=== PATIENT | female | born 1975 | race African-American/Black ===

== ENCOUNTER 2017-10-06 11:23 | Emergency (ER) | payer SELFPAY ==
[2017-10-06 12:00] LABS: #Basophils 0.1 thou/uL (0.0-0.2); #Eosinphils 0.2 thou/uL (0.0-0.7); #Lymphocytes 2.7 thou/uL (1.20-3.40); #Monocytes 0.5 thou/uL (0.11-0.59); #Neutrophils 4.8 thou/uL (1.40-6.50); %Basophils 0.9 % (0.0-1.0); %Eosinophils 2.2 % (0.0-10.0); %Lymphocytes 32.5 % (21.0-51.0); %Monocytes 6.2 % (0.0-10.0); %Neutrophils 58.1 % (42.0-75.0); Hemoglobin 14.1 g/dL (12.0-16.0); Mean Corpuscular Hemoglobin 28.8 pg (27.0-31.0); Mean Corpuscular Volume 87.4 fl (81.0-99.0); Mean Platelet Volume 6.9 fL (7.4-10.4); Platelet Count 265 thou/uL (130-400); RBC Distribution Width 11.8 % (11.5-14.5); Red Blood Cell (RBC) Count 4.89 mill/uL (4.20-5.40); White Blood Cell (WBC) Count 8.2 thou/uL (4.8-10.8)
--- NOTE | 2017-10-06 12:14 | RAD ---
AP VIEW OF THE CHEST: INDICATION: Emergency examination for hypertension. COMPARISON: Prior exam dated 10/14/10. FINDINGS: Lungs are clear. Cardiomediastinal silhouette is within normal limits. No acute osseous abnormality is evident. The examination is not appreciably changed from a comparison dated 10/14/10. IMPRESSION: No acute cardiopulmonary abnormality. POS: [facility]
[2017-10-06 12:24] LABS: CKMB 1.1 ng/mL (0-6.6); Troponin I Less than 0.010 ng/mL (< 0.028)
[2017-10-06 12:52] LABS: ALT (SGPT) 11 U/L (8-55); AST (SGOT) 17 U/L (5-34); Albumin 3.9 g/dL (3.5-5.0); Alkaline Phosphatase 79 U/L (40-150); Anion Gap 10 mmol/L (10-20); BUN (Urea Nitrogen) 11 mg/dL (7.0-18.7); Bilirubin, Total 0.4 mg/dL (0.2-1.2); CK (CPK) 284 U/L (29-168); Calc. Creatinine Clearance 0 mL/min (70-130); Calcium 8.8 mg/dL (7.8-10.44); Carbon Dioxide 26 mmol/L (22-29); Chloride 103 mmol/L (98-107); Estimated GFR-MDRD Greater than 90; Globulin 2.9 g/dL (2.4-3.5); Glucose 76 mg/dL (70-105); Potassium 3.8 mmol/L (3.5-5.1); Protein, Total 6.8 g/dL (6.0-8.3); Sodium 135 mmol/L (136-145)
[2017-10-06 14:17] LABS: Troponin I Less than 0.010 ng/mL (< 0.028)
== END 2017-10-06 14:34 | disposition home or self-care (01) ==
LOC: ERS 11:23
DX: R55 Syncope and collapse (principal); I10 Essential (primary) hypertension; D50.9 Iron deficiency anemia, unspecified; F17.210 Nicotine dependence, cigarettes, uncomplicated
CPT/HCPCS: 36415; 71045; 80053; 82553; 84484; 85025; 93005

== ENCOUNTER 2018-06-21 18:54 | Emergency (ER) | payer SELFPAY ==
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
== END 2018-06-21 22:51 | disposition home or self-care (01) ==
LOC: ERS 18:54
DX: S16.1XXA Strain of muscle, fascia and tendon at neck level, initial encounter (principal); M54.6 Pain in thoracic spine; I10 Essential (primary) hypertension; D50.0 Iron deficiency anemia secondary to blood loss (chronic); F17.210 Nicotine dependence, cigarettes, uncomplicated; Z79.899 Other long term (current) drug therapy; V43.92XA Unspecified car occupant injured in collision with other type car in traffic accident, initial encounter
CPT/HCPCS: 72040; 72072; 72125

== ENCOUNTER 2019-06-28 08:42 | Observation (INO) | payer MEDICAID, SELFPAY ==
--- NOTE | 2019-06-28 09:19 | RAD ---
CHEST 1 VIEW PORTABLE: Date: 06/28/2019 HISTORY: Shortness of breath, chest pain. COMPARISON: 10/06/2017. FINDINGS: Heart size is within normal limits. The lungs are clear. No confluent pneumonia, overt edema, or pleu ral effusion. IMPRESSION: No acute intrathoracic disease. POS: [facility]
[2019-06-28 09:33] LABS: #Eosinphils 0.2 thou/uL (0.0-0.7); #Lymphocytes 2.1 thou/uL (1.20-3.40); #Monocytes 0.4 thou/uL (0.11-0.59); #Neutrophils 3.6 thou/uL (1.40-6.50); %Basophils 0.5 % (0.0-1.0); %Eosinophils 2.8 % (0.0-10.0); %Lymphocytes 33.4 % (21.0-51.0); %Monocytes 5.8 % (0.0-10.0); %Neutrophils 57.4 % (42.0-75.0); Hemoglobin 13.3 g/dL (12.0-16.0); Mean Corpuscular HGB CONC 32.3 g/dL (32.0-36.0); Mean Corpuscular Volume 86.7 fL (78.0-98.0); Mean Platelet Volume 7.4 fL (7.4-10.4); Platelet Count 270 thou/uL (130-400); RBC Distribution Width 12.8 % (11.5-14.5); Red Blood Cell (RBC) Count 4.76 mill/uL (4.20-5.40); White Blood Cell (WBC) Count 6.3 thou/uL (4.8-10.8)
[2019-06-28] MEDS ORDERED: Aspirin Chewable 81 MG TAB ONE (09:33)
[2019-06-28] MEDS ORDERED: Acetaminophen 500 MG TAB ONE (09:33)
[2019-06-28 09:43] LABS: ALT (SGPT) 12 U/L (8-55); AST (SGOT) 13 U/L (5-34); Albumin 3.9 g/dL (3.5-5.0); Alkaline Phosphatase 86 U/L (40-110); Anion Gap 9 mmol/L (10-20); BUN (Urea Nitrogen) 11 mg/dL (7.0-18.7); Bilirubin, Total 0.3 mg/dL (0.2-1.2); CK (CPK) 210 U/L (29-168); Calc. Creatinine Clearance 0 mL/min (70-130); Calcium 8.6 mg/dL (7.8-10.44); Carbon Dioxide 28 mmol/L (22-29); Chloride 104 mmol/L (98-107); Estimated GFR-MDRD Greater than 90; Globulin 2.6 g/dL (2.4-3.5); Glucose 75 mg/dL (70-105); Lipase 5 U/L (8-78); Potassium 3.9 mmol/L (3.5-5.1); Protein, Total 6.5 g/dL (6.0-8.3); Sodium 137 mmol/L (136-145)
--- NOTE | 2019-06-28 11:21 | CT ---
CTA Angio Chest W WO Con 06/28/2019 10:36 AM Indication: Intermittent chest pain Technique: Multiple CTA images were obtained of the thorax with IV contrast. 3-D rendering: MIP samson nstructed images were created and reviewed. Comparison: No relevant prior studies available. Findings: Pulmonary arteries: No central or segmental pulmonary embolus is evident. Heart and Aorta: Normal appearing. Mediastinum:Normal appearing. No enlarged lymph nodes. Lungs:The lungs are clear. Pleural space: Clear. Upper Abdomen: No acute abnormality. Osseous Structures: No acute osseous abnormality. Soft tissues:No abnormality. Other findings:None. Impression: No central or segmental pulmonary embolus. No acute cardiopulmonary abnormality demonstrated.
--- NOTE | 2019-06-28 11:33 | CT ---
CT BRAIN NONCONTRAST: DATE: 06/28/2019 HISTORY: 44 year old female with headache FINDINGS: There is no evidence of acute intra-axial or extra-axial hemorrhage. There is no midline shift or any other mass effect. There is no extra-axial fluid collection. There is no evidence of obstructive hydrocephalus. Calvarium is intact. IMPRESSION: No acute intracranial findings.
[2019-06-28 13:44] LABS: Troponin I Less than 0.010 ng/mL (< 0.028)
--- NOTE | 2019-06-28 14:36 | HP ---
PRIMARY CARE PROVIDER: [facility] The patient referred to the [facility] Hospitalist Service by [facility] for chest pain. The patient describes chest pain associated with shortness of breath, described as a pressure in the chest, heaviness in the chest, off and on for 3 days. It is lasted as much as hours at a time. She has had no sweats and no nausea. It has radiated into her right neck. It woke her up last night. Most of the time it is happened with activity. PAST MEDICAL HISTORY: Pertinent for hypertension and elevated cholesterol. MEDICATIONS: Only medicines she is on is hydrochlorothiazide, unknown dose. ALLERGIES: NO KNOWN DRUG ALLERGIES. PAST SURGICAL HISTORY: Tubal ligation, then she had a hysterectomy. FAMILY HISTORY: Mother with CHF. She has had a sister and an uncle who have had coronary artery bypass graft. SOCIAL HISTORY: Single. Full code status. Next of kin, Rosibel Ferguson, sibling. She smokes one pack a day and drinks occasional alcohol. REVIEW OF SYSTEMS: CONSTITUTIONAL: She has had some headache and dizzy with present illness. She states she has frequent headaches. EYES: She has occasional bright spots in her eyes. She has bright blurred vision at times. No double vision. EAR, NOSE AND THROAT: No ear pain or drainage. No nasal bleeding. No trouble swallowing. CARDIAC: See present illness. No orthopnea or paroxysmal nocturnal dyspnea. RESPIRATION: No cough, wheezing or asthma. GASTROINTESTINAL: No nausea, vomiting, abdominal pain, diarrhea, constipation or melena. GENITOURINARY: No hematuria or dysuria. MUSCULOSKELETAL: No pain or swelling in arms or legs. NEUROLOGICAL: No strokes, seizures or focal weakness. PSYCHIATRIC: No anxiety or depression. SKIN: No bruising, bleeding or rash. HEME/LYMPH: No tender or swollen lymph nodes in axilla, inguinal and cervical area. PHYSICAL EXAMINATION: GENERAL: Alert, pleasant, cooperative lady, in no distress at this time. VITAL SIGNS: Most recent; blood pressure 153/89, pulse 71, respirations 19, room air sat 99, and temperature 98.1. HEAD, EYES, EARS, NOSE, AND THROAT: Pupils are equal, round, and reactive to light. Extraocular movements are intact. Sclerae are white. Tympanic membranes are clear. Nose is clear. Oral mucous membranes are wet. Dental hygiene is good. NECK: Supple without jugular venous distention, adenopathy or thyromegaly. CHEST: Clear to auscultation and percussion. HEART: Regular rate and rhythm. First and second heart sounds are clear. There are no murmurs or gallops. ABDOMEN: Soft. Bowel sounds are normal. There is no hepatosplenomegaly. No mass. No rebound. EXTREMITIES: No cyanosis, clubbing or edema. PULSES: Carotid, radial, femoral, and dorsalis pedis pulses intact. SKIN: Warm and dry without bruises or rash. HEME/LYMPH: No tender or swollen lymph nodes in axilla, inguinal or cervical area. NEUROLOGICAL: Cranial nerves 2 through 12 are intact. Moves all extremities. DIAGNOSTIC DATA: EKG; regular sinus rhythm, normal, personally reviewed. Chest x-ray; no cardiomegaly, CHF, infiltrate, personally reviewed. CAT scan of the chest done because of the elevated D-dimer, no pulmonary emboli. Brain CT apparently done because of headache, no acute abnormality. LABORATORY DATA: D-dimer 0.57. Comp metabolic profile normal except for a CK of 10. Cardiac enzymes are normal x2. BNP is 40. CBC is normal. ADMITTING DIAGNOSES: 1. Chest pain. 2. Hypertension. 3. Elevated cholesterol. 4. Tobacco abuse. PLAN: Aspirin, nuclear medicine, and cardiac stress test. Job ID: [id number]
[2019-06-28] MEDS ORDERED: Iopamidol-370 76% 500 ML 1 ML ONE (14:38)
[2019-06-28 15:46] LABS: Troponin I Less than 0.010 ng/mL (< 0.028)
[2019-06-28] MEDS ORDERED: Ondansetron ODT 4 MG TAB SL PRN (17:29)
[2019-06-28] MEDS ORDERED: Ondansetron PF 4 MG/2 ML Vial IVP PRN (17:29)
[2019-06-28] MEDS ORDERED: hydrALAZINE 20 MG/ML VIAL SLOW IVP PRN (17:30)
[2019-06-28 17:39] VITALS: BMI 35.3
[2019-06-29] MEDS ORDERED: hydrALAZINE 20 MG/ML VIAL SLOW IVP PRN (04:27)
[2019-06-29] MEDS ORDERED: Acetaminophen 500 MG TAB PO PRN (08:55)
[2019-06-29] MEDS ORDERED: Hydrochlorothiazide 25 MG TAB PO SCH (09:00)
[2019-06-29] MEDS ORDERED: Enoxaparin Sodium 40 MG/0.4 ML SYRINGE SC SCH (09:00)
[2019-06-29] MEDS ORDERED: Aspirin 325 mg Enteric Coated Tablet PO SCH (09:00)
--- NOTE | 2019-06-29 12:28 | NM ---
MYOCARDIAL PERFUSION SCAN WITH STRESS IMAGING: HISTORY: Chest pain. TECHNIQUE/FINDINGS: Examination is performed using 30.1 mCi 99m-technetium sestamibi. A stress-only exam was performed. S tress study showed a normal distribution of radiopharmaceutical. No signs of ischemia. WALL MOTION: There is symmetric contractility to the ventricle. LEFT VENTRICULAR EJECTION FRACTION: The calculated left ventricular ejection fraction is 68%. IMPRESSION: Unremarkable myocardial stress study. POS: [facility]
[2019-06-29 12:44] VITALS: BP 150/84; TEMP 98.6
[2019-06-29] MEDS ORDERED: Regadenoson 0.4 MG/5 ML SYRINGE ONE (13:10)
--- NOTE | 2019-06-30 01:08 | DIS ---
DATE OF ADMISSION: 06/28/2019 DATE OF DISCHARGE: 06/29/2019 REASON FOR HOSPITALIZATION: Chest pain. SIGNIFICANT FINDINGS: The patient found to have no signs or symptoms of acute cardiothoracic pathology. PROCEDURES PERFORMED AND TREATMENTS RENDERED: The patient was admitted to the medical unit with telemetry and monitored on continuous telemetry without events. The patient went for nuclear medicine stress test, please see full report for details, there was no reversible ischemia identified. The patient having negative cardiac enzymes x3. The patient's metabolic workup is otherwise benign. The patient did have a CT angiography of the chest on admission, please see full report for details, there is no acute cardiothoracic process and no pulmonary embolisms were identified. The patient does acknowledge that she has been under severe life stressors and going through severe anxiety and depression. The patient continues to smoke cigarettes and wishing help to stop smoking. I spent time with counseling the patient on the importance of tobacco abstinence and ways to avoid smoking. The patient recommended safe for discharge with close followup in the outpatient setting with primary care physician. CONDITION ON DISCHARGE: Stable. SPECIFIC INSTRUCTIONS FOR THE PATIENT/FAMILY: 1. The patient is recommended to take all medications as directed, to be re-evaluated by primary care physician in the upcoming weeks. 2. The patient is recommended to abstain from tobacco use and use nicotine patches/gums as needed. 3. The patient is recommended to return to acute care hospital immediately if signs or symptoms return, worsen, or any other new symptoms occur. DISCHARGE MEDICATIONS: 1. Hydrochlorothiazide 25 mg one tablet p.o. daily. 2. Sertraline 25 mg one tablet p.o. daily. 3. Nicotine patch 14 mg one patch transdermal daily. TIME SPENT: Greater than 36 minutes spent coordinating care and discharge process for this patient. Job ID: [id number]
== END 2019-06-29 14:10 | disposition home or self-care (01) ==
LOC: ERS 08:42 → 2SW 17:08
PROVIDERS: ADMIT Internal Medicine; ATTEND Internal Medicine
DX: R07.89 Other chest pain (principal); I10 Essential (primary) hypertension; E78.00 Pure hypercholesterolemia, unspecified; F41.9 Anxiety disorder, unspecified; F32.9 Major depressive disorder, single episode, unspecified; F17.210 Nicotine dependence, cigarettes, uncomplicated; Z79.899 Other long term (current) drug therapy
CPT/HCPCS: 36415; 70450; 71045; 71275; 78452; 80053; 82550; 83690; 83880; 84484; 85025; 85379; 93005; 93017; 94760; 96360; 96361; 96374; A9500; G0378; J0360; J2785; Q9967

== ENCOUNTER 2020-04-08 11:37 | Outpatient (CLI) | payer OTHER ==
--- NOTE | 2020-04-08 13:52 | RAD ---
PA AND LATERAL VIEWS CHEST: 04/08/20 HISTORY: Wheezing. COMPARISON: 06/28/19. The heart size is normal. There is continued mild elevation of the right hemidiaphragm. No focal area s of consolidation, pneumothoraces or pleural effusions are seen. There are mild degenerative changes in the spine. IMPRESSION: No radiographic evidence of acute cardiopulmonary process. POS: [facility]
== END 2020-04-08 11:38 | disposition home or self-care (01) ==
LOC: BICRAD 11:37
PROVIDERS: ATTEND Nurse Practitioner Family
DX: R06.2 Wheezing (principal)
CPT/HCPCS: 71046

== ENCOUNTER 2020-09-07 03:45 | Observation (INO) | payer MEDICAID, SELFPAY ==
[2020-09-07] MEDS ORDERED: Meclizine HCl 25 MG TAB ONE (04:32)
[2020-09-07] MEDS ORDERED: Diazepam 5 MG TAB ONE ×2 (05:28→06:07)
[2020-09-07 08:20] LABS: #Lymphocytes 1.5 thou/uL (1.20-3.40); #Monocytes 0.4 thou/uL (0.11-0.59); #Neutrophils 5.8 thou/uL (1.40-6.50); %Basophils 0.4 % (0.0-1.0); %Eosinophils 0.5 % (0.0-10.0); %Lymphocytes 19.4 % (21.0-51.0); %Monocytes 4.8 % (0.0-10.0); %Neutrophils 74.9 % (42.0-75.0); Hemoglobin 14.5 g/dL (12.0-16.0); Mean Corpuscular HGB CONC 31.6 g/dL (32.0-36.0); Mean Corpuscular Hemoglobin 27.8 pg (27.0-31.0); Mean Platelet Volume 6.9 fL (7.4-10.4); Platelet Count 315 thou/uL (130-400); RBC Distribution Width 12.7 % (11.5-14.5); White Blood Cell (WBC) Count 7.8 thou/uL (4.8-10.8)
[2020-09-07 08:24] LABS: BHCG - Serum Negative (NEGATIVE); Pregs Control Background? CLEAR/WHITE (CLR/WHITE); Pregs Control Bar Appear? YES (CONTROL BAR)
[2020-09-07 08:38] LABS: ALT (SGPT) 13 U/L (8-55); AST (SGOT) 11 U/L (5-34); Albumin 4.2 g/dL (3.5-5.0); Alkaline Phosphatase 104 U/L (40-110); Anion Gap 10 mmol/L (10-20); BUN (Urea Nitrogen) 10 mg/dL (7.0-18.7); Bilirubin, Total 0.3 mg/dL (0.2-1.2); Calc. Creatinine Clearance 0 mL/min (70-130); Calcium 8.6 mg/dL (7.8-10.44); Carbon Dioxide 29 mmol/L (22-29); Chloride 105 mmol/L (98-107); Globulin 3.2 g/dL (2.4-3.5); Glucose 95 mg/dL (70-105); Potassium 4.3 mmol/L (3.5-5.1); Protein, Total 7.4 g/dL (6.0-8.3); Sodium 140 mmol/L (136-145)
[2020-09-07 09:07] LABS: Bilirubin Negative (Negative); Blood, Urine Negative (Negative); Clarity Clear (Clear); Glucose, Urine (Dipstick) Normal (Negative); Ketone, Urine Negative (Negative); Leukocyte Negative Leu/uL (Negative); Nitrite Negative (Negative); Protein, Urine (Dipstick) Negative (Neg-Trace); Specific Gravity, Urine 1.009 (1.002-1.036); Urobilinogen Normal mg/dL (Less than 2)
[2020-09-07] MEDS ORDERED: Acetaminophen 325 MG TAB PO PRN (11:03)
[2020-09-07] MEDS ORDERED: Acetaminophen 650 MG Suppository PR PRN (11:03)
[2020-09-07] MEDS ORDERED: Meclizine HCl 25 MG TAB PO PRN (11:09)
[2020-09-07] MEDS ORDERED: Aspirin Chewable 81 MG TAB ONE (11:34)
[2020-09-07] MEDS ORDERED: Aspirin 325 MG TAB PO SCH (11:45)
[2020-09-07] MEDS ORDERED: Iopamidol-370 76% 500 ML 1 ML ONE (11:51)
[2020-09-07 12:57] LABS: Lactic Acid 1.3 mmol/L (0.5-2.2)
[2020-09-07] MEDS ORDERED: Ondansetron ODT 4 MG TAB SL PRN (13:00)
[2020-09-07] MEDS ORDERED: Ondansetron PF 4 MG/2 ML Vial IVP PRN (13:00)
[2020-09-07 13:05] LABS: Potassium 4.4 mmol/L (3.5-5.1)
[2020-09-07 13:11] LABS: Magnesium 1.9 mg/dL (1.6-2.6)
[2020-09-07] MEDS ORDERED: Magnesium 2 GM/50 ML 2 GM in Premix Bag 1 BAG IVPB SCH (14:00)
[2020-09-07 14:03] VITALS: BMI 35.6
[2020-09-07] MEDS: Sodium Chloride 0.9% 1,000 ML IV SCH (15:29)
[2020-09-07] MEDS ORDERED: predniSONE 20 MG TAB PO SCH (16:45)
[2020-09-07 17:19] LABS: SARS-CoV-2 PCR by NAA Not Detected (NotDetected)
[2020-09-07] MEDS ORDERED: Atorvastatin Calcium 40 MG TAB PO SCH (21:00)
[2020-09-07] MEDS: Famotidine/PF 20 mg/2ml Vial SLOW IVP SCH (21:18)
[2020-09-08 05:31] LABS: #Lymphocytes 0.8 thou/uL (1.20-3.40); #Monocytes 0.1 thou/uL (0.11-0.59); %Eosinophils 0.2 % (0.0-10.0); %Neutrophils 87.8 % (42.0-75.0); Hemoglobin 13.7 g/dL (12.0-16.0); Mean Corpuscular Volume 87.7 fL (78.0-98.0); Mean Platelet Volume 6.9 fL (7.4-10.4); Platelet Count 332 thou/uL (130-400); RBC Distribution Width 12.9 % (11.5-14.5); Red Blood Cell (RBC) Count 4.89 mill/uL (4.20-5.40); White Blood Cell (WBC) Count 6.9 thou/uL (4.8-10.8)
[2020-09-08 05:46] LABS: Anion Gap 12 mmol/L (10-20); BUN (Urea Nitrogen) 11 mg/dL (7.0-18.7); Calc. Creatinine Clearance 140 mL/min (70-130); Calcium 8.5 mg/dL (7.8-10.44); Carbon Dioxide 25 mmol/L (22-29); Cardiac Risk 5.3 (Less than 4.5); Chloride 104 mmol/L (98-107); Cholesterol 179 mg/dl (< 200 Desired); Glucose 194 mg/dL (70-105); HDL Cholesterol 34 mg/dL (>60 Neg Risk); LDL Cholesterol, Calculated 132 mg/dL; Potassium 4.4 mmol/L (3.5-5.1); Sodium 137 mmol/L (136-145); Triglycerides 66 mg/dL (Less than 150)
[2020-09-08] MEDS: Famotidine/PF 20 mg/2ml Vial SLOW IVP SCH (08:15)
[2020-09-08] MEDS: Sodium Chloride 0.9% 1,000 ML IV SCH (08:15)
[2020-09-08] MEDS ORDERED: predniSONE 20 MG TAB PO SCH (09:00)
[2020-09-08] MEDS ORDERED: Aspirin 81 mg Enteric Coated Tablet PO SCH (09:00)
[2020-09-08 11:42] VITALS: BP 157/86; TEMP 98
== END 2020-09-08 12:43 | disposition home or self-care (01) ==
LOC: ERS 03:45 → 2SE 10:31
PROVIDERS: ADMIT Internal Medicine; ATTEND Internal Medicine
DX: R42 Dizziness and giddiness (principal); R11.2 Nausea with vomiting, unspecified; R26.81 Unsteadiness on feet; E78.5 Hyperlipidemia, unspecified; I10 Essential (primary) hypertension; F17.210 Nicotine dependence, cigarettes, uncomplicated; H55.09 Other forms of nystagmus; E66.9 Obesity, unspecified; Z68.35 Body mass index [BMI] 35.0-35.9, adult; Z79.899 Other long term (current) drug therapy; Z20.822 Contact with and (suspected) exposure to COVID-19
CPT/HCPCS: 36415; 70450; 70496; 70498; 70551; 80048; 80053; 80061; 81003; 83605; 83735; 84484; 84703; 85025; 87635; 93005; 95712; 95819; 95957; 96374; 96375; 96376; G0378; J3475; J7512; Q9967; S0028; U0003; U0005

== ENCOUNTER 2022-03-11 19:00 | Outpatient (CLI) | payer OTHER | END 2022-03-11 19:01 | disposition home or self-care (01) | LOC: SLEEPLAB 19:00 | DX: G47.33 Obstructive sleep apnea (adult) (pediatric) (principal); R06.83 Snoring; G47.10 Hypersomnia, unspecified; F32.A Depression, unspecified; F41.9 Anxiety disorder, unspecified; R53.83 Other fatigue; Z68.35 Body mass index [BMI] 35.0-35.9, adult | CPT/HCPCS: 95810 ==

== ENCOUNTER 2022-04-13 14:53 | Outpatient (CLI) | payer MEDICAID | END 2022-04-13 14:54 | disposition home or self-care (01) | LOC: BICMAMMO 14:53 | PROVIDERS: ATTEND Nurse Practitioner Family | DX: N63.10 Unspecified lump in the right breast, unspecified quadrant (principal) | CPT/HCPCS: 77066; G0279 ==

== ENCOUNTER 2022-06-09 19:30 | Outpatient (CLI) | payer OTHER | END 2022-06-09 19:31 | disposition home or self-care (01) | LOC: SLEEPLAB 19:30 | PROVIDERS: ATTEND Internal Medicine | DX: G47.33 Obstructive sleep apnea (adult) (pediatric) (principal); R53.83 Other fatigue | CPT/HCPCS: 95811 ==

== ENCOUNTER 2024-05-08 10:03 | Outpatient (CLI) | payer OTHER | END 2024-05-08 10:04 | disposition home or self-care (01) | LOC: BICRAD 10:03 | PROVIDERS: ATTEND Nurse Practitioner Family | DX: M25.561 Pain in right knee (principal); M17.11 Unilateral primary osteoarthritis, right knee; M85.861 Other specified disorders of bone density and structure, right lower leg ==

== ENCOUNTER 2024-07-23 11:57 | Outpatient (CLI) | payer OTHER | END 2024-07-23 11:58 | disposition home or self-care (01) | LOC: BICMAMMO 11:57 | PROVIDERS: ATTEND Nurse Practitioner Family | DX: Z12.31 Encounter for screening mammogram for malignant neoplasm of breast (principal); Z80.3 Family history of malignant neoplasm of breast | CPT/HCPCS: 77063; 77067 ==